=== PATIENT | female | born 1940 | race Caucasian/White ===

== ENCOUNTER → 2017-01-12 | Outpatient (CLI) | payer MEDICARE, BC ==
--- NOTE | ~2017-01-12 | BD1 ---
[facility] A Service of [facility] & [facility] RADIOLOGY TEXT RESULTS PATIENT: MICHAEL SANCHEZ LOCATION: [facility] : 42 UNIT #: [id number] AGE: [address]: Ankit Proctor MD SEX: F ORDER DR: [id number] [address] [id number] O MR#: [id number] Acc #: [id number] NAME: MICHAEL SANCHEZ : 1940 SEX: F STUDY DATE/TIME: 01/12/2017 8:48 UNIT: [facility] ROOM: STUDY DESCRIPTION: BD Dexa Bone Dens 1+ Site Attending Physician: Ankit Proctor M.D. Referring Physician: Ankit Proctor M.D. Ordering Physician: Ankit Proctor M.D. Primary Care Physician: Ankit Proctor M.D. MEDICAL IMAGING REPORT This report is preliminary unless electronic signature is present. EXAM DXA scan, 01/12/2017 HISTORY Status post menopause with no hormone replacement therapy. Osteopenia. Rheumatoid arthritis. Smoking history for 40 years. FINDINGS Bone mineral density in the lumbar spine, from L1-L4, was 0.741 g/cm2, which is 3.7 standard deviations below the mean when compared to the young adult reference population, which is characteristic of osteoporosis. This is 1.4 standard deviations below the mean when compared to the age-match population. Bone mineral density in the right forearm was 0.355 g/cm2, which is 6 standard deviations below the mean when compared to the young adult reference population, which is characteristic of osteoporosis. This is 3.7 standard deviations below the mean when compared to the age-match population. IMPRESSION Bone mineral density in the lumbar spine and right forearm characteristic of osteoporosis. Dictated by... Alexander Galvin M.D. THIS IS AN ELECTRONICALLY VERIFIED REPORT Alexander Galvin M.D. at 01/13/2017 2:21 PM KRT/dominick TD: 01/12/2017 23:54 JOB #: [id number] [facility] A Service of [facility] & [facility] RADIOLOGY TEXT RESULTS PATIENT: MICHAEL SANCHEZ LOCATION: [facility] : 42 UNIT #: [id number] AGE: [address]: Ankit Proctor MD SEX: F ORDER DR: MEDICAL IMAGING REPORT Page 1 of 1
== END | disposition home or self-care (01) ==
LOC: SRAD 08:21
DX: Z13.820 Encounter for screening for osteoporosis (principal); Z78.0 Asymptomatic menopausal state
CPT/HCPCS: 77080